=== PATIENT | male | born 1980 | race African-American/Black ===

== ENCOUNTER 2018-03-25 12:21 | Observation (INO) ==
[2018-03-25 14:05] LABS: Basophils % 0.3 % (0.0-0.8); Eosinophils # 0.1 10*3/uL (0.0-0.87); Eosinophils % 0.8 % (0.00-10.9); Hematocrit 46.6 VOL% (42.0-52.0); Hemoglobin 15.6 GM/DL (14.0-18.0); Immature Granulocytes % 0.3 %; Immature Granulocytes Absolute 0.03 #; Lymphocytes # 2.1 10*3/uL (1.4-4.0); Lymphocytes % 22.9 % (21.2-54.2); Mean Corpuscular HGB Conc 33.5 GM/DL (32-36); Mean Corpuscular Hemoglobin 30 PG (27-34); Mean Corpuscular Volume 90.7 FL (87-102); Mean Platelet Volume 9.8 FL (9.6-12.0); Monocytes # 0.8 10*3/uL (0.11-0.8); Monocytes % 8.8 % (1.7-12.7); Neutrophils % 66.9 % (38.7-73.9); Platelet Count 305 T/CUMM (130-400); Red Blood Count 5.14 MC/CUMM (3.8-5.5); Red Cell Distribution Width 14.3 % (9.3-17.3)
[2018-03-25 14:15] LABS: INR 0.9; Partial Thromboplastin Time 29.5 SECS (0-40)
[2018-03-25 14:24] LABS: Calcium 8.3 MG/DL (8.5-10.1); Osmolality,Calculated 280.3 MOS/KG (273-304); Potassium 4.3 MMOL/L (3.5-5.1)
[2018-03-25] MEDS ORDERED: ONDANSETRON 4 MG/2 ML VIAL IV PRN (14:30)
[2018-03-25] MEDS ORDERED: BISACODYL 10 MG SUPP RECTAL PRN (14:30)
[2018-03-25] MEDS ORDERED: ACETAMINOPHEN 325 MG TABLET PO PRN (14:30)
[2018-03-25] MEDS: cefOXitin 2,000 MG in SYRINGE 1 EACH IV SCH ×2 (17:54→21:59)
[2018-03-25] MEDS: DEXTROSE 5% LACTATED RINGERS 1,000 ML IV SCH ×2 (17:55→23:01)
[2018-03-26] MEDS: cefOXitin 2,000 MG in SYRINGE 1 EACH IV SCH ×4 (02:41→20:57)
[2018-03-26] MEDS: DEXTROSE 5% LACTATED RINGERS 1,000 ML IV SCH ×4 (02:50→22:55)
[2018-03-26] MEDS: PANTOPRAZOLE 40 MG TABLET PO SCH (08:42)
[2018-03-26] MEDS ORDERED: PROPOFOL 200 MG/20 ML VIAL IV ONE (09:15)
[2018-03-26] MEDS ORDERED: SEVOFLURANE 1 UNIT/15 MINUTE INH ONE (09:15)
[2018-03-26] MEDS ORDERED: MIDAZOLAM 2 MG/2 ML VIAL ONE (09:15)
[2018-03-26] MEDS ORDERED: ONDANSETRON 4 MG/2 ML VIAL ONE (09:16)
[2018-03-26] MEDS ORDERED: fentaNYL 100 MCG/2 ML VIAL ONE (09:16)
[2018-03-26] MEDS ORDERED: MAGNESIUM HYDROXIDE SUSP 30 ML UDCUP PO ONE (11:51)
[2018-03-27] MEDS: DEXTROSE 5% LACTATED RINGERS 1,000 ML IV SCH ×2 (01:47→06:57)
[2018-03-27] MEDS: cefOXitin 2,000 MG in SYRINGE 1 EACH IV SCH ×2 (03:55→08:24)
[2018-03-27 08:03] VITALS: BP 115/71
[2018-03-27] MEDS: PANTOPRAZOLE 40 MG TABLET PO SCH (08:23)
== END 2018-03-27 13:15 | disposition home or self-care (01) ==
LOC: N.EDINP 12:21 → N.ED 12:21 → N.3E 14:53
PROVIDERS: ADMIT Surgery; ATTEND Surgery